=== PATIENT | male | born 2000 | race Caucasian/White ===

== ENCOUNTER 2020-08-26 13:40 | Outpatient (REF) | payer MEDICAID, SELFPAY | END 2020-08-26 13:41 | disposition home or self-care (01) | LOC: HO.LAB 13:40 | PROVIDERS: Visit Provider Internal Medicine | DX: Z20.828 Contact with and (suspected) exposure to other viral communicable diseases (principal) | CPT/HCPCS: 87635 ==

== ENCOUNTER 2020-09-02 14:14 | Emergency (ER) | payer MEDICAID, SELFPAY ==
--- NOTE | 2020-09-02 | XR_ITS ---
EXAMINATION: XR CHEST CLINICAL INFORMATION: Cough with pain COMPARISON: None TECHNIQUE: Frontal view of the chest was obtained. FINDINGS: The lungs are well expanded. There is no focal consolidation, edema, or effusion. No pneumothorax. The cardiomediastinal silhouette is within normal limits. No acute osseous abnormality. IMPRESSION: Clear lungs.
[2020-09-02 16:16] VITALS: BP 122/75; PULSE 78; RESP 16; TEMP 37.1; O2SAT 98; BMI 27.3
--- NOTE | 2020-09-02 16:40 | ED_ITS ---
HPI - URI/Sore Throat General Chief Complaint: Upper Respiratory Symptoms <CHAD Cooper Last Filed: 09/02/20 16:54> Stated Complaint: chest congestion <CHAD Cooper Last Filed: 09/02/20 16:54> Time Seen by Provider: 09/02/20 16:40 <CHAD Cooper Last Filed: 09/02/20 16:54> Source: patient <CHAD Cooper Last Filed: 09/02/20 16:54> Mode of arrival: ambulatory <CHAD Cooper Last Filed: 09/02/20 16:54> Limitations: no limitations <CHAD Cooper Last Filed: 09/02/20 16:54> History of Present Illness HPI Narrative: 20-year-old male presenting to the ED with complaints of a dry cough for the past 5 days. Denies any other symptoms related to this. Reports that he was seen here approximately 5 days ago for an outpatient COVID swab was negative although did not have symptoms at this time. Reports that 1 of his coworkers tested positive for COVID. Denies any fevers, nausea / vomiting, headaches, dizziness, chest pain or shortness of breath, abdominal pain or any other symptoms complaints or concerns at this time. Denies recent travel. <CHAD Cooper Last Filed: 09/02/20 16:54> Related Data Home Medications: Previous Rx's Medication Instructions Recorded acetaminophen [Tylenol] 650 mg PO Q6H PRN #14 tab NS 09/02/20 albuterol sulfate 2 puff INHALATION Q6H PRN #6.7 g NS 09/02/20 azithromycin [Zithromax] See Rx Instructions PO .COMPLEX #6 09/02/20 tab <CHAD Cooper Last Filed: 09/02/20 16:54> Allergies/Adverse Reactions: Allergies Allergy/AdvReac Type Severity Reaction Status Date / Time No Known Allergies Allergy Verified 09/02/20 16:21 <CHAD Cooper Last Filed: 09/02/20 16:54> Review of Systems Review of Systems: Yes all other systems are reviewed and are negative <CHAD Cooper Last Filed: 09/02/20 16:54> PMFSH Past Medical History Attestation statement: The following information was validated with the patient. <CHAD Cooper - Last Filed: 09/02/20 16:54> Medical History: Medical History No known health problems <CHAD Cooper - Last Filed: 09/02/20 16:54> Social History Social History: Social History Alcohol intake: never Smoked in Last 30 Days: No Use of substances other than those prescribed or required for medical reasons: No Advance Directives: No Advance Directives Information Provided: No <CHAD Cooper - Last Filed: 09/02/20 16:54> Physical Exam Vital Signs: Vital Signs: Vital Signs Temp Pulse Resp BP Pulse Ox 09/02/20 16:16 98.7 F 78 16 122/75 98 Body Mass Index 27.3 <CHAD Cooper - Last Filed: 09/02/20 16:54> Vital Signs: Vital Signs Temp Pulse Resp BP Pulse Ox 09/02/20 16:16 98.7 F 78 16 122/75 98 Body Mass Index 27.3 <Luis Pepe MD - Last Filed: 09/06/20 15:12> Const: General: cooperative, healthy appearing, comfortable, no acute distress, well developed, alert, awake and Physically active <CHAD Cooper - Last Filed: 09/02/20 16:54> Nutritional Appearance: average body habitus and well nourished <CHAD Cooper - Last Filed: 09/02/20 16:54> Orientation/consciousness: patient oriented x3 <CHAD Cooper - Last Filed: 09/02/20 16:54> Limitations: no limitations <CHAD Cooper - Last Filed: 09/02/20 16:54> HENMT: Head: Yes normal to inspection, Yes No palpable skull fracture present, Yes normocephalic and Yes atraumatic <CHAD Cooper - Last Filed: 09/02/20 16:54> Ears: hearing grossly normal bilaterally <CHAD Cooper - Last Filed: 09/02/20 16:54> General nose exam: Normal external nose present <CHAD Cooper Last Filed: 09/02/20 16:54> Face and sinus: Yes normal facial exam <CHAD Cooper Last Filed: 09/02/20 16:54> Mouth: moist mucous membranes <Paula Maria [facility] Last Filed: 09/02/20 16:54> Eyes: General: appearance normal, both eyes and all related structures <CHAD Cooper Last Filed: 09/02/20 16:54> Visual Becerra: normal visual becerra by confrontation <Paula Maria [facility] Last Filed: 09/02/20 16:54> Alignment and Position: alignment normal <CHAD Cooper Last Filed: 09/02/20 16:54> Periorbital: periorbital findings normal <CHAD Cooper Last Filed: 09/02/20 16:54> Eyelids: Yes eyelids normal <CHAD Cooper Last Filed: 09/02/20 16:54> Conjunctivae: conjunctivae normal <CHAD Cooper Last Filed: 09/02/20 16:54> Sclerae: sclerae normal <Paula Maria [facility] Last Filed: 09/02/20 16:54> Pupils: Equal, round and reactive pupils present <CHAD Cooper Last Filed: 09/02/20 16:54> EOM: EOMs intact bilaterally <CHAD Cooper Last Filed: 09/02/20 16:54> Neck: Neck: Yes normal visual inspection, Yes full ROM, Yes no lymphadenopathy, Yes no meningeal signs, Yes trachea midline and Yes supple <Paula Maria [place] - Last Filed: 09/02/20 16:54> Chest: Chest palpation & inspection: normal inspection of the chest <CHAD Cooper Last Filed: 09/02/20 16:54> Resp: Effort & Inspection: normal respiratory effort and able to speak in complete sentences <CHAD Cooper Last Filed: 09/02/20 16:54> Auscultation: clear to auscultation bilaterally, no crackles, no rales, no rhonchi and no wheezes <CHAD Cooper - Last Filed: 09/02/20 16:54> Cardio: Rate: regular rate <Paula Maria [facility] Last Filed: 09/02/20 16:54> Rhythm: regular rhythm <Paula Maria [facility] Last Filed: 09/02/20 16:54> Heart sounds: S1 normal heart sound present and S2 normal heart sound present <Paula Maria [facility] Last Filed: 09/02/20 16:54> Peripheral pulses: Peripheral pulses 2+ throughout <Paula Maria [facility] Last Filed: 09/02/20 16:54> GI: Inspection: Yes normal to inspection <Paula Maria [facility] Last Filed: 09/02/20 16:54> Palpation (GI): Soft to palpation, nontender and No hepatosplenomegaly present <Paula Maria [facility] Last Filed: 09/02/20 16:54> Percussion: Yes normal to percussion <Paula Maria [facility] Last Filed: 09/02/20 16:54> Auscultation: normal bowel sounds <Paula Maria [facility] Last Filed: 09/02/20 16:54> : General: Yes no CVA tenderness <Paula Maria [facility] Last Filed: 09/02/20 16:54> Back/Spine/Pelvis: Back: no CVA tenderness <Paula Maria [facility] Last Filed: 09/02/20 16:54> Cervical Spine: normal cervical lordosis and cervical ROM normal <Paula Maria [facility] Last Filed: 09/02/20 16:54> Thoracic/Lumbar Spine: thoracic and lumbar spine normal to inspection and thoraco-lumbar ROM normal <Paula Maria [facility] Last Filed: 09/02/20 16:54> Skin: General skin exam: no rashes or lesions noted, elasticity normal and turgor normal <Paula Maria [facility] Last Filed: 09/02/20 16:54> Trauma: no lacerations or abrasions <Paula Maria [facility] Last Filed: 09/02/20 16:54> Wounds: no wounds <Paula Maria [facility] Last Filed: 09/02/20 16:54> Hair: normal <Paula Maria PA - Last Filed: 09/02/20 16:54> Nails: normal <Paula Maria [place] - Last Filed: 09/02/20 16:54> Neuro: General: patient oriented x3 and no meningeal signs <Paula Maria OR - Last Filed: 09/02/20 16:54> Cranial nerves: Yes CN's II-XII intact bilaterally and Yes Equal, round and reactive pupils present <Paula Maria OR - Last Filed: 09/02/20 16:54> Cognition (Neuro): normal cognition <Paula Maria OR - Last Filed: 09/02/20 16:54> Gait exam (Neuro): Normal gait present <Paula Maria OR - Last Filed: 09/02/20 16:54> Motor exam (neuro): 5/5 motor strength present throughout <Paula Maria OR - Last Filed: 09/02/20 16:54> Extrem: General: Yes normal to inspection, Yes full ROM, Yes capillary refill normal, Yes no clubbing, cyanosis or edema, No no pedal edema, No no calf tenderness, Yes normal gait and No edema <Paula Maria OR - Last Filed: 09/02/20 16:54> Right upper extremity: normal to inspection, full ROM and normal capillary refill; no edema <Paula Maria OR - Last Filed: 09/02/20 16:54> Left upper extremity: normal to inspection, full ROM and normal capillary refill; no edema <Paula Maria OR - Last Filed: 09/02/20 16:54> Right lower extremity: normal to inspection, full ROM and normal capillary refill; no edema <Paula Maria OR - Last Filed: 09/02/20 16:54> Left lower extremity: normal to inspection, full ROM and normal capillary refill; no edema <Paula Maria OR - Last Filed: 09/02/20 16:54> Psych: Appearance: grossly normal and well kempt <Paula Maria OR - Last Filed: 09/02/20 16:54> Mental Status: mental status grossly normal <CHAD Cooper - Last Filed: 09/02/20 16:54> Speech and movement: Normal speech and movement present and Clear speech present <CHAD Cooper - Last Filed: 09/02/20 16:54> Affect: normal affect <CHAD Cooper - Last Filed: 09/02/20 16:54> Attitude: cooperative <CHAD Cooper - Last Filed: 09/02/20 16:54> Thought process: Normal thought process present <CHAD Cooper - Last Filed: 09/02/20 16:54> Thought content: Normal thought content present <CHAD Cooper - Last Filed: 09/02/20 16:54> Insight: Good insight present (Psych) <CHAD Cooper - Last Filed: 08/18 05/07 16:54> Judgement: Good judgement present (Psych) <CHAD Cooper - Last Filed: 09/02/20 16:54> Course Course Course Narrative: I have reviewed the chart <Luis Pepe MD - Last Filed: 09/06/20 15:12> MDM - URI/Sore Throat Lab Data Labs: Lab Results 09/02/20 Range/Units 17:17 COVID-19 PCR DETECTED A (NOT DETECTED) <CHAD Cooper - Last Filed: 09/02/20 16:54> Lab Results 09/02/20 Range/Units 17:17 COVID-19 PCR DETECTED A (NOT DETECTED) <Luis Pepe MD - Last Filed: 09/06/20 15:12> Discharge Plan Discharge Clinical Impression: Upper respiratory infection <CHAD Cooper - Last Filed: 09/02/20 16:54> Patient Disposition: Home, Self-Care <CHAD Cooper - Last Filed: 09/02/20 16:54> Instructions: Upper Respiratory Infection (ED) <CHAD Cooper - Last Filed: 09/02/20 16:54> Additional Instructions: Based on your symptoms and history we have sent a COVID-19. Although your RESULT IS PENDING at this time. RESULTS should return within 72 hours. At this time you will be contacted with either NEGATIVE OR POSITIVE results. -Please wait until we contact you for your results. At this time you will be okay for discharge. Please plan for self quarantine for up to 14 days. Do not expose yourself to others. You may not go to work. If testing does come back negative you may return to activities as long as you are no longer having any symptoms for at least 3 days. Please continue to follow cold instructions and wash your hands frequently. You may take Tylenol as directed on the bottle for pain or fever. Patient seen in the emergency department on 09/02/2020 and should be excused from work until negative test results AND until 72 hours without any symptoms AND at least 10 days have passed since symptoms first appeared or since last exposure to COVID-19 positive patient CDC Guidelines for home isolation: - Stay away from others - WEAR A MASK if you are sick AND STAY HOME - Cover your mouth and nose with a tissue when you cough or sneeze. Dispose of tissues in a lined trash can and wash your hands immediately with soap and water for at least 20 seconds. If soap and water are not available, clean hands with alcohol-based hand acid correction hand that contains at least 60% alcohol. - Clean your hands often with soap and water for at least 20 seconds - Avoid touching your eyes, nose and mouth with unwashed hands - Do not share dishes, drinking glasses, cups, eating utensils, towels, or bedding with other people in your home. After using these items, wash them thoroughly with soap and water or put in the parking cashier. - Clean high-touch surfaces in your isolation area ( sick room and bathroom) every day; let a caregiver clean and disinfect high-touch surfaces in other areas of the home. Clean the area or item with soap and water or another detergent if it is dirty. Then, use a household disinfectant. - Limit contact with pets and animals: If you must care for a pet, wash your hands before and after interacting with them). <CHAD Cooper - Last Filed: 09/02/20 16:54> Prescriptions: New azithromycin [Zithromax] 250 mg tablet See Rx Instructions PO .COMPLEX Qty: 6 RF: 0 acetaminophen [Tylenol] 325 mg tablet 650 mg PO Q6H PRN (Reason: pain) Qty: 14 RF: 0 albuterol sulfate 90 mcg/actuation HFA aerosol inhaler 2 puff inhalation Q6H PRN (Reason: shortness of breath or wheezing) Qty: 6.7 RF: 0 <CHAD Cooper - Last Filed: 09/02/20 16:54> Stand Alone Forms: Work/School Release <CHAD Cooper - Last Filed: 09/02/20 16:54> Interventions: ED Discharge Assessment Last Done: 09/02/20 17:55 <CHAD Cooper - Last Filed: 09/02/20 16:54> Discharge Date/Time: 09/02/20 17:00 <CHAD Cooper - Last Filed: 09/02/20 16:54> Print Language: Kenyan <CHAD Cooper - Last Filed: 09/02/20 16:54>
== END 2020-09-02 17:00 | disposition home or self-care (01) ==
PROVIDERS: Physician Assistant Medical; Emergency Provider Emergency Medicine
DX: J06.9 Acute upper respiratory infection, unspecified (principal); Z20.828 Contact with and (suspected) exposure to other viral communicable diseases; Z79.899 Other long term (current) drug therapy
CPT/HCPCS: 71045; 87635; 99283; 99284

== ENCOUNTER 2021-01-26 12:41 | Emergency (ER) | payer MEDICAID, SELFPAY ==
--- NOTE | ~2021-01-26 | CT_ITS ---
EXAMINATION: CT ABDOMEN AND PELVIS WITHOUT CONTRAST CLINICAL INFORMATION: abd pain s/p appy. . COMPARISON: No pertinent prior studies are available for comparison. TECHNIQUE: Multidetector volumetric imaging was performed from the superior aspect of the liver through the pubic symphysis without contrast per renal stone protocol. Sagittal and coronal reformatted images were obtained on the technologist workstation. This CT examination was performed using dose optimization techniques as appropriate, variously including the following: *Automated exposure control *Adjustment of mA and/or kV according to patient size (this includes techniques or standardized protocols for targeted exams where dose is matched to indication/reason for exam; i.e. extremities or head) *Use of iterative reconstruction technique DLP: 525 mGy-cm. FINDINGS: LUNG BASES: The visualized lung bases are unremarkable. LIVER, GALLBLADDER, BILIARY TREE: The non-contrast liver is normal in size, shape, and attenuation. No focal hepatic lesion or biliary ductal dilatation is present. The gallbladder is unremarkable with no evidence of radiopaque gallstones, gallbladder wall thickening, or obvious pericholecystic inflammatory changes. PANCREAS: Unremarkable. SPLEEN: Unremarkable. ADRENAL GLANDS: Unremarkable. KIDNEYS AND URETERS: The kidneys are normal in size, shape, and attenuation. Tiny nonobstructing punctate calculi seen bilaterally. No hydronephrosis, hydroureter, or obstructing calculi seen. No perinephric stranding. BLADDER: Unremarkable. GASTROINTESTINAL TRACT: The small and large bowel are unremarkable. The appendix is likely surgically absent. No focal inflammatory changes in the right lower quadrant. ABDOMINAL WALL: No significant hernia is appreciated. LYMPHOVASCULAR STRUCTURES: No lymphadenopathy. The aorta is unremarkable.. PELVIC VISCERA: Unremarkable. OSSEUS STRUCTURES: Unremarkable. CT/CT abdomen pelvis wo con IMPRESSION: No acute intra-abdominal process..
[2021-01-26 13:05] VITALS: BP 126/77; PULSE 82; RESP 16; TEMP 36.8; O2SAT 97; BMI 27.3
[2021-01-26 13:22] LABS: MANUAL DIFF FLAG NO
[2021-01-26 13:25] LABS: Basophils Percent Auto 0.6 % (0-2); Eosinophils Percent Auto 0.8 % (0-4); Hematocrit 45.4 % (42-52); Hemoglobin 15.3 g/dl (14.0-18.0); Imm Gran Abs Auto 0.01 X10*3/uL (0.00-0.03); Imm Gran Pct Auto 0.2 % (0.0-0.4); Lymphocytes Absolute Auto 1.7 X10*3/uL (1.2-4.9); Lymphocytes Percent Auto 32.3 % (20-40); Mean Corpuscular HGB Conc 33.7 g/dl (31.0-36.0); Mean Corpuscular Hemoglobin 28.2 pg (27.0-33.0); Mean Corpuscular Volume 83.8 fL (80-98); Mean Platelet Volume 9.5 fL (9.4-12.4); Monocytes Absolute Auto 0.7 X10*3/uL (0.1-1.2); Monocytes Percent Auto 12.7 % (2-11); Neutrophils Absolute Auto 2.8 X10*3/uL (2.0-8.3); Neutrophils Percent Auto 53.4 % (45-73); Platelet Count 255 X10*3/uL (160-400); Red Blood Count 5.42 X10*6/uL (4.60-5.80); Red Cell Distribution Width 12.8 % (11.0-16.0); White Blood Count 5.3 X10*3/uL (4.8-10.8)
[2021-01-26 13:37] LABS: Glucose Urine UA NEG (NEG); Leukocyte Esterase Urine NEG (NEG); Nitrite Urine NEG (NEG); Specific Gravity - Urine 1.025 (1.005-1.025); Urine Blood NEG (NEG); Urine Ketones NEG (NEG); Urine Protein NEG (NEG-TRACE)
[2021-01-26 13:43] LABS: Appearance Urine CLEAR; Color Urine YELLOW
[2021-01-26 13:48] LABS: Anion Gap 12 (12-20); Blood Urea Nitrogen 15 mg/dL (9-16); Calcium 9.6 mg/dL (8.4-10.2); Carbon Dioxide 29 mmol/L (22-29); Chloride 106 mmol/L (96-108); Estimated Glomerular Filt Rate > 60; Glucose Random 85 mg/dL (60-115); Sodium 143 mmol/L (135-145)
--- NOTE | 2021-01-26 18:53 | ED.ABDPAIN ---
HPI - Abdominal Pain General Chief Complaint: Abdominal Pain Stated Complaint: ABD PAIN Time Seen by Provider: 01/26/21 18:33 Source: patient Mode of arrival: ambulatory Limitations: no limitations History of Present Illness HPI narrative: 20-year-old male came in with diffuse abdominal pain, pain started 1 day ago, pain described as constant dull aching pain, more in the right lower quadrant area (patient status post appendectomy), but also patient feels pain diffusely in the abdomen, decreased p.o. intake, nausea and low-grade fever but no vomiting, no diarrhea. Nothing makes the pain better, nothing make it worse. Related Data Previous Rx's Medication Instructions Recorded acetaminophen [Tylenol] 650 mg PO Q6H PRN #14 tab NS 09/02/20 albuterol sulfate 2 puff INHALATION Q6H PRN #6.7 g NS 09/02/20 azithromycin [Zithromax] See Rx Instructions PO .COMPLEX #6 09/02/20 tab Allergies Allergy/AdvReac Type Severity Reaction Status Date / Time No Known Allergies Allergy Verified 09/02/20 16:21 Review of Systems Review of Systems All other systems are reviewed and are negative Constitutional: Reports as per HPI and Reports no additional constitutional complaints Eyes: Reports as per HPI and Reports no additional eye complaints Reports system reviewed and no additional complaints, except as documented Cardiovascular: Reports as per HPI and Reports no additional cardiovascular complaints Respiratory: Reports as per HPI and Reports no additional respiratory complaints Gastrointestinal: Reports as per HPI and Reports no additional gastrointestinal complaints Genitourinary: Reports no additional female genitourinary complaints Musculoskeletal: Reports no additional musculoskeletal complaints Skin/Breast: Reports system reviewed and no additional complaints, except as docu Psychiatric: Reports no additional psychiatric complaints Endocrine: Reports no additional endocrine complaints Hematologic/Lymphatic: Reports no additional hematologic/lymphatic complaints Allergic/Immunologic: Reports no additional allergic/immunologic complaints Reports system reviewed and no additional complaints, except as documented and Reports Abnormal speech present Physical Exam Vital Signs: Vital Signs: Last Vital Signs Temp 98.9 F 01/26/21 18:55 Pulse 95 01/26/21 18:55 Resp 16 01/26/21 18:55 BP 131/66 01/26/21 18:55 Pulse Ox 98 01/26/21 18:55 Body Mass Index 27.3 Vital signs have been reviewed as appeared to be correct. Blood pressure normal. Heart rate normal. Respiration rate normal. Temperature normal. Oxygen saturation normal. Appearance: Alert. Oriented X3. No acute distress. Head: Normal external exam. Normocephalic. Atraumatic. No Geiger signs noted. No raccoon eyes noted Eyes: PERRLA. EOMI. Conjunctiva and sclera normal. Eyelids normal. ENT: TM's Normal. Pharynx normal. Uvula midline. Moist mucous membranes. No trismus noted. No drooling noted. No muffled voice noted. Neck: Normal inspection. Neck supple. FROM. No adenopathy. Thyroid Normal. No meningeal signs. No neck mass noted. CVS: Normal heart rate and rhythm. Heart sound normal. No murmurs noted. Pulses normal throughout. Respiratory: No respiratory distress. Painless inspiration. Breath sounds normal. No wheezes/rales/rhonchi noted. Chest nontender. No accessory muscle usage noted or decreased air movement noted. Abdomen: Soft, mild diffuse tenderness, no guarding, no rebound tenderness.. Bowel sounds normal in all 4 quadrants. No distention noted. No organomegaly noted. No visible injury noted. Back: No CVA tenderness. Full range of motion noted. Skin: Skin warm and dry. Normal skin color. Normal skin turgor. No rashes/lesions/lacerations noted. Extremities: No lower extremity edema. Extremities exhibit normal range of motion. Extremities nontender. Neuro: Oriented X 3. No motor deficit. No sensory deficit. Reflexes normal. Course Course Course Narrative: Acute on chronic abdominal pain, status post appendectomy, unremarkable labs, CT abdomen pelvis no acute intra-abdominal pathology. Will discharge to follow-up with PCP. Chronic back pain patient work with heavy boxes, patient was instructed to take few days off from work and try to rest his back using NSAIDs and heating pad. MDM - Abdominal Pain Lab Data Attestation: I reviewed the patient's lab results. Result diagrams: 01/26/21 13:14 01/26/21 13:14 Labs: Lab Results 01/26/21 01/26/21 01/26/21 Range/Units 13:14 13:14 13:14 WBC 5.3 (4.8-10.8) X10*3/uL RBC 5.42 (4.60-5.80) X10*6/uL Hgb 15.3 (14.0-18.0) g/dl Hct 45.4 (42-52) % MCV 83.8 (80-98) fL MCH 28.2 (27.0-33.0) pg MCHC 33.7 (31.0-36.0) g/dl RDW 12.8 (11.0-16.0) % Plt Count 255 (160-400) X10*3/uL MPV 9.5 (9.4-12.4) fL Immature Gran % (Auto) 0.2 (0.0-0.4) % Neut % (Auto) 53.4 (45-73) % Lymph % (Auto) 32.3 (20-40) % [place] % (Auto) 12.7 H (2-11) % Eos % (Auto) 0.8 (0-4) % Baso % (Auto) 0.6 (0-2) % Lymph # (Auto) 1.7 (1.2-4.9) X10*3/uL [place] # (Auto) 0.7 (0.1-1.2) X10*3/uL Eos # (Auto) 0.0 (0.0-0.4) X10*3/uL Baso # (Auto) 0.0 (0.0-0.2) X10*3/uL Abs Immat Gran (auto) 0.01 (0.00-0.03) X10*3/uL Absolute Neuts (auto) 2.8 (2.0-8.3) X10*3/uL Absolute Nucleated RBC 0.000 (0.0-0.012) X10*3/uL Nucleated RBC % (auto) 0.0 (0.0-0.2) /100WBC Sodium 143 (135-145) mmol/L Potassium 4.0 (3.3-5.1) mmol/L Chloride 106 (96-108) mmol/L Carbon Dioxide 29 (22-29) mmol/L Anion Gap 12 (12-20) BUN 15 (9-16) mg/dL Creatinine 0.89 (0.5-1.4) mg/dL Estim Creat Clear Calc 127.0 Estimated GFR > 60 Random Glucose 85 (60-115) mg/dL Calcium 9.6 (8.4-10.2) mg/dL Total Bilirubin 0.7 (0.0-1.0) mg/dL Direct Bilirubin 0.3 (0.0-0.5) mg/dL AST 17 (5-37) U/L ALT 14 (0-40) U/L Alkaline Phosphatase 58 (39-117) U/L Total Protein 7.7 (6.5-8.0) g/dL Albumin 4.8 (3.5-5.0) g/dL Lipase 18 (8-78) U/L Urine Color YELLOW Urine Appearance CLEAR Urine pH 6.0 (5.0-8.0) Ur Specific [place] 1.025 (1.005-1.025) Urine Protein NEG (NEG-TRACE) MG/DL Urine Glucose (UA) NEG (NEG) MG/DL Urine Ketones NEG (NEG) MG/DL Urine Blood NEG (NEG) Urine Nitrite NEG (NEG) Ur Leukocyte Esterase NEG (NEG) Imaging Data CT scan - abdomen: Radiologist's impression: No acute intra-abdominal process. Discharge Plan Discharge Clinical Impression: Chronic back pain, Abdominal pain Patient Disposition: Home, Self-Care Instructions: Back Pain (ED) Prescriptions: No Action azithromycin [Zithromax] 250 mg tablet See Rx Instructions PO .COMPLEX Qty: 6 RF: 0 acetaminophen [Tylenol] 325 mg tablet 650 mg PO Q6H PRN (Reason: pain) Qty: 14 RF: 0 albuterol sulfate 90 mcg/actuation HFA aerosol inhaler 2 puff inhalation Q6H PRN (Reason: shortness of breath or wheezing) Qty: 6.7 RF: 0 Referrals: [facility] [Primary Care Provider] - 2 days Stand Alone Forms: Work/School Release [facility] Past Medical History Medical History No known health problems Surgical History History of appendectomy Social History Social History Alcohol intake: never Advance Directives: No Advance Directives Information Provided: No
[2021-01-26 18:55] VITALS: BP 131/66; PULSE 95; RESP 16; TEMP 37.2; O2SAT 98
[2021-01-26 19:11] LABS: Alanine Aminotransferase 14 U/L (0-40); Albumin Level 4.8 g/dL (3.5-5.0); Alkaline Phosphatase 58 U/L (39-117); Aspartate Amino Transferase 17 U/L (5-37); Bilirubin Direct 0.3 mg/dL (0.0-0.5); Bilirubin Total 0.7 mg/dL (0.0-1.0); Lipase 18 U/L (8-78); Total Protein 7.7 g/dL (6.5-8.0)
[2021-01-26 20:00] VITALS: BP 125/70; PULSE 88; RESP 16; TEMP 36.9; O2SAT 98
== END 2021-01-26 20:39 | disposition home or self-care (01) ==
PROVIDERS: Emergency Provider Emergency Medicine
DX: R10.31 Right lower quadrant pain (principal); G89.29 Other chronic pain; M54.9 Dorsalgia, unspecified
CPT/HCPCS: 36415; 74176; 80048; 80076; 81003; 83690; 85025; 99284

== ENCOUNTER 2021-06-05 11:53 | Outpatient (REF) | payer MEDICAID, SELFPAY | END 2021-06-05 11:54 | disposition home or self-care (01) | LOC: HO.LAB 11:53 | PROVIDERS: Visit Provider Internal Medicine | DX: Z20.822 Contact with and (suspected) exposure to COVID-19 (principal) | CPT/HCPCS: C9803; U0003; U0005 ==

== ENCOUNTER 2022-03-22 11:02 | Emergency (ER) | payer MEDICAID, SELFPAY ==
[2022-03-22 11:13] VITALS: BP 122/75; PULSE 93; RESP 18; TEMP 36.9; O2SAT 97; BMI 25.8
--- NOTE | 2022-03-22 11:44 | PC.NURSE ---
Pt presents to ED, alert, oriented C/C upper respiratory symptoms. States he developed a cough last week that has left him with through pain, pt denies measured fevers, chills, nausea, vomiting, diarrhea. obtained swabs for flu, strep, and covid. Pt resting comfortably, no acute distress
[2022-03-22 11:56] LABS: Strep A Nucleic Acid Negative (Negative)
[2022-03-22 12:06] LABS: COVID-19 Test Negative (Negative); IDNOW Serial# 16C4AD1C; Influenza A Negative (Negative); Influenza B2 Negative (Negative)
--- NOTE | 2022-03-22 12:57 | ED_ITS ---
HPI - URI/Sore Throat General Chief Complaint: Upper Respiratory Symptoms Stated Complaint: cough sore throat Time Seen by Provider: 03/22/22 11:24 Source: patient Mode of arrival: ambulatory Limitations: no limitations History of Present Illness HPI Narrative: 21-year-old male presents with 1 week of upper respiratory symptoms. States that he has had a runny nose and cough for a week, had a fever 1 day at the o nset of symptoms, fever has resolved. Patient has had body aches. Three days ago he started with a sore throat. Some pain with swallowing, but is able to eat and drink. Not vaccinated for COVID. Patient works as [employer], and today was sent here for evaluation due to his cough. Related Data Previous Rx's Medication Instructions Recorded Tylenol 325 mg tablet 650 mg PO Q6H PRN #14 tab NS 09/02/20 (acetaminophen) albuterol sulfate 90 mcg/actuation 2 puff INHALATION Q6H PRN #6.7 g NS 09/02/20 aerosol inhaler azithromycin 250 mg tablet See Rx Instructions PO .COMPLEX #6 09/02/20 (Zithromax) tab albuterol sulfate 90 mcg/actuation 2 puff INHALATION Q4-6H PRN #8.5 g 03/22/22 aerosol inhaler benzonatate 200 mg capsule 200 mg PO TID 5 Days #15 cap 03/22/22 codeine 10 mg-guaifenesin 100 mg/5 10 ml PO Q4-6H PRN #120 ml 03/22/22 mL oral liquid Allergies Allergy/AdvReac Type Severity Reaction Status Date / Time No Known Allergies Allergy Verified 09/02/20 16:21 Review of Systems Constitutional: Constitutional: Reports body ache(s), Denies chills, Denies fatigue, Reports fever(s) (Once, 1 week ago), Denies headache(s), Denies malaise and Denies weakness Eyes: Eyes: Denies diplopia ENT: Denies vertigo, Denies dizziness, Denies otalgia, Denies headache(s), Denies mouth pain, Reports nasal congestion, Reports post nasal drip, Denies sinus pain, Denies sinus pressure, Reports sore throat and Denies throat swelling Cardiovascular: Cardiovascular: Denies chest pain, Denies syncope, Denies leg edema, Denies lightheadedness, Denies Loss of Consciousness, Denies palpitations and Denies dyspnea Respiratory: Respiratory: Denies chest congestion, Reports cough, Denies pain on inspiration, Denies pain with cough and Denies dyspnea Gastrointestinal: Gastrointestinal: Denies abdominal pain, Denies hematochezia, Denies constipation, Denies diarrhea, Denies nausea and Denies vomiting Musculoskeletal: Musculoskeletal: Reports no additional musculoskeletal complaints Neurologic: Denies confusion, Denies vertigo, Denies dizziness, Denies syncope, Denies headache(s) and Denies weakness Psychiatric: Psychiatric: Denies anxiety, Denies confusion and Denies depression Endocrine: Endocrine: Denies fatigue and Denies palpitations Allergic/Immunologic: Allergic/Immunologic: Denies throat swelling PMFSH Past Medical History Medical History No known health problems Surgical History History of appendectomy Social History Social History Alcohol intake: never Advance Directives: No Advance Directives Information Provided: No Physical Exam Vital Signs: Vital Signs: Last Vital Signs Temp 98.5 F 03/22/22 11:13 Pulse 93 03/22/22 11:13 Resp 18 03/22/22 11:13 BP 122/75 03/22/22 11:13 Pulse Ox 97 03/22/22 11:13 BMI result Body Mass Index 25.8 Const: General: no acute distress, well developed, alert and awake; No confusion Nutritional Appearance: well nourished Orientation/consciousness: patient oriented x3 and No confusion Limitations: no limitations HEENT: Head: Yes normal to inspection, Yes normocephalic and Yes atraumatic Ears: hearing grossly normal bilaterally, external ears normal, TM's normal bilaterally and EAC's normal General nose exam: Normal external nose present Face and sinus: Yes normal facial exam and Yes sinuses nontender Mouth: Normal oral and palatal mucosa present Throat: Yes posterior oropharynx normal, Yes posterior oropharynx abnormal (mild posterior erythema) and Yes postnasal drainage Eyes: Conjunctivae: conjunctivae normal Pupils: Equal, round and reactive pupils present EOM: EOMs intact bilaterally Neck: Neck: Yes full ROM, Yes no lymphadenopathy and Yes supple Resp: Effort & Inspection: normal respiratory effort and able to speak in complete sentences Auscultation: clear to auscultation bilaterally, no crackles, no rales, no rhonchi and no wheezes Cardio: Rate: regular rate Rhythm: regular rhythm Heart sounds: S1 normal heart sound present and S2 normal heart sound present GI: Inspection: Yes normal to inspection Palpation (GI): Soft to palpation, nontender, no guarding and not rigid Percussion: Yes normal to percussion Auscultation: normal bowel sounds Skin: General skin exam: no rashes or lesions noted Neuro: General: patient oriented x3 and No confusion Cranial nerves: Yes Equal, round and reactive pupils present Extrem: General: Yes normal to inspection and Yes full ROM Psych: Appearance: grossly normal Affect: normal affect Attitude: cooperative Thought process: Normal thought process present Course Course Course Narrative: 21-year-old male presents for 1 week of upper respiratory symptoms including cough dry cough, 1 day of fever, body aches, runny nose, sore throat. On exam, patient has stable vitals, he is afebrile, lungs clear to auscultation bilaterally, no wheezing, oropharynx mildly erythematous with postnasal drip. Patient is COVID, strep, flu negative. Will treat with albuterol inhaler to help dry cough, Tessalon Perles, Mucinex with codeine. Gave return precautions of chest pain, shortness of breath, worsening symptoms, return to emergency room. Patient verbalized agreement understanding of plan, all patient's questions were answered. MDM - URI/Sore Throat Lab Data Labs: Lab Results 03/22/22 03/22/22 03/22/22 Range/Units 11:32 11:32 11:32 COVID-19 ([facility]) Negative (Negative) COVID-19 Clin Com See Note Influenza Type A ([facility]) Negative (Negative) Influenza Type B ([facility]) Negative (Negative) Influenza A & B Note See Note S. pyogenes GrpA [facility] Negative (Negative) Discharge Plan Discharge Clinical Impression: Upper respiratory infection Patient Disposition: Home, Self-Care Instructions: Viral Syndrome (ED) Additional Instructions: Please rest, take Tylenol, drink plenty of fluids. Your COVID, flu, and strep test were all negative today. Please use your albuterol inhaler, 2 puffs every 4 hours. Please take the cough syrup before bed for sleep. Please take the benzonatate cough pills as pre scribed. If you have chest pain, shortness of breath, or worsening symptoms, please return to emergency room Prescriptions: New albuterol sulfate 90 mcg/actuation HFA aerosol inhaler 2 puff inhalation Q4-6H PRN (Reason: shortness of breath or wheezing) Qty: 8.5 0RF codeine-guaifenesin 10-100 mg/5 mL liquid 10 ml PO Q4-6H PRN (Reason: cough) Qty: 120 0RF benzonatate 200 mg capsule 200 mg PO TID 5 Days Qty: 15 0RF No Action azithromycin [Zithromax] 250 mg tablet See Rx Instructions PO .COMPLEX Qty: 6 0RF Rx Instructions: take 500 mg today (day 1), then 250 mg for 4 days (days 2-5) acetaminophen [Tylenol] 325 mg tablet 650 mg PO Q6H PRN (Reason: pain) Qty: 14 0RF albuterol sulfate 90 mcg/actuation HFA aerosol inhaler 2 puff inhalation Q6H PRN (Reason: shortness of breath or wheezing) Qty: 6.7 0RF Stand Alone Forms: Work/School Release Interventions: ED Discharge Assessment Last Done: 03/22/22 12:48 Discharge Date/Time: 03/22/22 12:50
== END 2022-03-22 12:50 | disposition home or self-care (01) ==
PROVIDERS: Physician Assistant; Emergency Provider Emergency Medicine
DX: J06.9 Acute upper respiratory infection, unspecified (principal); R05.9 Cough, unspecified; M79.10 Myalgia, unspecified site; Z20.822 Contact with and (suspected) exposure to COVID-19; Z79.899 Other long term (current) drug therapy
CPT/HCPCS: 87502; 87635; 87651; 99283

== ENCOUNTER 2022-12-11 01:05 | Emergency (ER) | payer MEDICAID, SELFPAY ==
[2022-12-11 01:10] VITALS: BP 121/98; BP 140/80; PULSE 96; RESP 16; TEMP 36.6; O2SAT 99; BMI 25.8
[2022-12-11 01:15] VITALS: BP 121/98; PULSE 96; RESP 16; TEMP 36.6; O2SAT 98
--- NOTE | 2022-12-11 01:19 | ED_ITS ---
HPI - Nausea/Vomiting/Diarrhea General Chief complaint: Nausea/Vomiting/Diarrhea Stated complaint: food poisoning Time Seen by Provider: 12/11/22 01:19 Source: patient Mode of arrival: ambulatory Limitations: no limitations History of Present Illness HPI Narrative: Patient had burger at [facility] at noon time yesterday since 14:00 been vomiting more than 10-15 times no significant abdominal pain no diarrhea no fever or chills no lower abdominal pain Related Data Previous Rx's Medication Instructions Recorded Tylenol 325 mg tablet 650 mg PO Q6H PRN pain #14 tabs 09/02/20 (acetaminophen) albuterol sulfate 90 mcg/actuation 2 puff inhalation Q6H PRN 09/02/20 aerosol inhaler shortness of breath or wheezing #6.7 grams azithromycin 250 mg tablet See Rx Instructions PO .COMPLEX #6 09/02/20 (Zithromax) tabs albuterol sulfate 90 mcg/actuation 2 puff inhalation Q4-6H PRN 03/22/22 aerosol inhaler shortness of breath or wheezing #8.5 grams benzonatate 200 mg capsule 200 mg PO TID 5 days #15 caps 03/22/22 codeine 10 mg-guaifenesin 100 mg/5 10 ml PO Q4-6H PRN cough #120 mL 03/22/22 mL oral liquid ondansetron 4 mg disintegrating 4 mg PO Q6-8H PRN nausea and 12/11/22 tablet vomiting #7 tabs Allergies Allergy/AdvReac Type Severity Reaction Status Date / Time No Known Allergies Allergy Verified 09/02/20 16:21 Review of Systems Review of Systems: Yes all other systems are reviewed and are negative PMFSH Past Medical History Medical History No known health problems Surgical History History of appendectomy Social History Social History Alcohol intake: never Smoked in Last 30 Days: No Use of substances other than those prescribed or required for medical reasons: No Advance Directives: No Advance Directives Information Provided: Yes Physical Exam Vital Signs: Vital Signs: Last Vital Signs Temp 99 F 12/11/22 05:59 Pulse 99 12/11/22 05:59 Resp 16 12/11/22 05:59 BP 133/67 12/11/22 05:59 Pulse Ox 96 12/11/22 05:59 O2 Del Method 12/11/22 05:59 BMI result Body Mass Index 25.8 Appearance: Alert. Oriented X3. No acute distress. Looks pale Eyes: PERRLA, No Nystagmus ENT: Pharynx normal. Oral Mucosa moist Neck: Normal inspection. Neck supple. CVS: Normal heart rate and rhythm. Pulses normal. Respiratory: No respiratory distress. Equal air entry bilateral, no wheezing/rales/rhonchi Abdomen: Soft slight tenderness in epigastric area, McBurney signs negative Bowel sounds are present, no mass palpable, no CVA tenderness Skin: Skin warm and dry. Normal skin color. Normal skin turgor. Extremities: No lower extremity edema. No calf tenderness Neuro: Oriented X 3. No motor deficit. 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 fluids no significant abdominal pain showed patient home advised to follow with PCP or report to ER if abdominal pain Lab Data 12/11/22 01:40 12/11/22 01:40 Labs: Lab Results 12/11/22 12/11/22 Range/Units 01:40 01:40 WBC 11.6 H (4.8-10.8) X10*3/uL RBC 6.37 H (4.60-5.80) X10*6/uL Hgb 17.5 (14.0-18.0) g/dl Hct 50.4 (42.0-52.0) % MCV 79.1 L (80.0-98.0) fL MCH 27.5 (27.0-33.0) pg MCHC 34.7 (31.0-36.0) g/dl RDW 12.7 (11.0-16.0) % Plt Count 261 (160-400) X10*3/uL MPV 9.4 (9.4-12.4) fL Immature Gran % (Auto) 0.3 (0.0-0.4) % Neut % (Auto) 86.3 H (45-73) % Lymph % (Auto) 7.0 L (20-40) % [place] % (Auto) 6.0 (2-11) % Eos % (Auto) 0.2 (0-4) % Baso % (Auto) 0.2 (0-2) % Lymph # (Auto) 0.8 L (1.2-4.9) X10*3/uL [place] # (Auto) 0.7 (0.1-1.2) X10*3/uL Eos # (Auto) 0.0 (0.0-0.4) X10*3/uL Baso # (Auto) 0.0 (0.0-0.2) X10*3/uL Abs Immat Gran (auto) 0.04 H (0.00-0.03) X10*3/uL Absolute Neuts (auto) 10.0 H (2.0-8.3) x10*3/uL Absolute Nucleated RBC 0.000 (0.0-0.012) X10*3/uL Nucleated RBC % (auto) 0.0 (0.0-0.2) /100WBC Sodium 140 (135-145) mmol/L Potassium 4.1 (3.3-5.1) mmol/L Chloride 104 (96-108) mmol/L Carbon Dioxide 22 (22-29) mmol/L Anion Gap 18 (12-20) BUN 16 (9-16) mg/dL Creatinine 0.91 (0.5-1.4) mg/dL Estim Creat Clear Calc 130.3 Estimated GFR > 60 Random Glucose 107 (60-115) mg/dL Calcium 9.8 (8.4-10.2) mg/dL Total Bilirubin 1.3 H (0.0-1.0) mg/dL AST 18 (5-37) U/L ALT 15 (0-40) U/L Alkaline Phosphatase 74 (39-117) U/L Total Protein 7.8 (6.5-8.0) g/dL Albumin 4.8 (3.5-5.0) g/dL Lipase 14 (8-78) U/L Discharge Plan Discharge Clinical Impression: Food poisoning Patient Disposition: Home, Self-Care Instructions: Food Poisoning (ED) Additional Instructions: Drink plenty of fluid Meds for nausea as prescribed Report to the ER if abdominal pain/fever/vomiting continues Prescriptions: New ondansetron 4 mg tablet,disintegrating 4 mg PO Q6-8H PRN (Reason: nausea and vomiting) Qty: 7 0RF No Action azithromycin [Zithromax] 250 mg tablet See Rx Instructions PO .COMPLEX Qty: 6 0RF Rx Instructions: take 500 mg today (day 1), then 250 mg for 4 days (days 2-5) acetaminophen [Tylenol] 325 mg tablet 650 mg PO Q6H PRN (Reason: pain) Qty: 14 0RF albuterol sulfate 90 mcg/actuation HFA aerosol inhaler 2 puff inhalation Q6H PRN (Reason: shortness of breath or wheezing) Qty: 6.7 0RF albuterol sulfate 90 mcg/actuation HFA aerosol inhaler 2 puff inhalation Q4-6H PRN (Reason: shortness of breath or wheezing) Qty: 8.5 0RF codeine-guaifenesin 10-100 mg/5 mL liquid 10 ml PO Q4-6H PRN (Reason: cough) Qty: 120 0RF benzonatate 200 mg capsule 200 mg PO TID 5 Days Qty: 15 0RF Interventions: ED Discharge Assessment Last Done: 12/11/22 06:01 Discharge Date/Time: 12/11/22 06:02
[2022-12-11] MEDS: ondansetron HCL 4 MG/2 ML VIAL IVPUSH (01:43)
[2022-12-11] MEDS: 0.9 % Sodium Chloride 1,000 ML 999 ML IV (01:43)
[2022-12-11 01:44] LABS: MANUAL DIFF FLAG NO
[2022-12-11 01:45] LABS: Basophils Percent Auto 0.2 % (0-2); Eosinophils Percent Auto 0.2 % (0-4); Hematocrit 50.4 % (42.0-52.0); Hemoglobin 17.5 g/dl (14.0-18.0); Imm Gran Abs Auto 0.04 X10*3/uL (0.00-0.03); Imm Gran Pct Auto 0.3 % (0.0-0.4); Lymphocytes Absolute Auto 0.8 X10*3/uL (1.2-4.9); Mean Corpuscular HGB Conc 34.7 g/dl (31.0-36.0); Mean Corpuscular Hemoglobin 27.5 pg (27.0-33.0); Mean Corpuscular Volume 79.1 fL (80.0-98.0); Mean Platelet Volume 9.4 fL (9.4-12.4); Monocytes Absolute Auto 0.7 X10*3/uL (0.1-1.2); Neutrophils Percent Auto 86.3 % (45-73); Platelet Count 261 X10*3/uL (160-400); Red Blood Count 6.37 X10*6/uL (4.60-5.80); Red Cell Distribution Width 12.7 % (11.0-16.0); White Blood Count 11.6 X10*3/uL (4.8-10.8)
[2022-12-11 02:10] LABS: Alanine Aminotransferase 15 U/L (0-40); Albumin Level 4.8 g/dL (3.5-5.0); Alkaline Phosphatase 74 U/L (39-117); Anion Gap 18 (12-20); Aspartate Amino Transferase 18 U/L (5-37); Bilirubin Total 1.3 mg/dL (0.0-1.0); Blood Urea Nitrogen 16 mg/dL (9-16); Calcium 9.8 mg/dL (8.4-10.2); Carbon Dioxide 22 mmol/L (22-29); Chloride 104 mmol/L (96-108); Creatinine Clr Calc Pharmacy 130.3; Estimated Glomerular Filt Rate > 60; Glucose Random 107 mg/dL (60-115); Lipase 14 U/L (8-78); Potassium 4.1 mmol/L (3.3-5.1); Sodium 140 mmol/L (135-145); Total Protein 7.8 g/dL (6.5-8.0)
[2022-12-11 03:01] VITALS: BP 120/74; PULSE 116; RESP 20; TEMP 36.7; O2SAT 98
[2022-12-11 05:59] VITALS: BP 133/67; PULSE 99; RESP 16; TEMP 37.2; O2SAT 96
== END 2022-12-11 06:02 | disposition home or self-care (01) ==
PROVIDERS: Emergency Provider Internal Medicine
DX: A05.9 Bacterial foodborne intoxication, unspecified (principal); Z79.899 Other long term (current) drug therapy
CPT/HCPCS: 36415; 80053; 83690; 85025; 96361; 96374; 99284; J2405

== ENCOUNTER 2023-05-06 17:34 | Emergency (ER) | payer MEDICAID, SELFPAY ==
[2023-05-06 17:40] VITALS: BP 118/59; PULSE 78; RESP 18; TEMP 36.3; O2SAT 98; BMI 26.1
--- NOTE | 2023-05-06 17:42 | ED_ITS ---
HPI - General Adult General Chief complaint: Skin/Abscess/Foreign Body Stated complaint: itchy rash Time Seen by Provider: 05/06/23 17:42 Source: patient, RN notes reviewed and old records reviewed Mode of arrival: ambulatory Limitations: no limitations History of Present Illness HPI narrative: 23-year-old male presents for rash He has had a rash to both of his arms for the last 2 weeks. He states that the rash is very itchy He denies being out in the sun for any extended periods. Denies working outside Denies any soaps, lotions, detergents Related Data Previous Rx's Medication Instructions Recorded Tylenol 325 mg tablet 650 mg PO Q6H PRN pain #14 tabs 09/02/20 (acetaminophen) albuterol sulfate 90 mcg/actuation 2 puff inhalation Q6H PRN 09/02/20 aerosol inhaler shortness of breath or wheezing #6.7 grams azithromycin 250 mg tablet See Rx Instructions PO .COMPLEX #6 09/02/20 (Zithromax) tabs albuterol sulfate 90 mcg/actuation 2 puff inhalation Q4-6H PRN 03/22/22 aerosol inhaler shortness of breath or wheezing #8.5 grams benzonatate 200 mg capsule 200 mg PO TID 5 days #15 caps 03/22/22 codeine 10 mg-guaifenesin 100 mg/5 10 ml PO Q4-6H PRN cough #120 mL 03/22/22 mL oral liquid ondansetron 4 mg disintegrating 4 mg PO Q6-8H PRN nausea and 12/11/22 tablet vomiting #7 tabs hydrocortisone 2.5 % topical cream 1 appl topical BID 7 days #28 grams 05/06/23 hydroxyzine HCl 25 mg tablet 25 mg PO TID PRN itching #15 tabs 05/06/23 Allergies Allergy/AdvReac Type Severity Reaction Status Date / Time No Known Allergies Allergy Verified 09/02/20 16:21 Review of Systems Integumentary/Breasts: Skin/Breast: Reports pruritus and Reports rash PMFSH Past Medical History Medical History No known health problems Surgical History History of appendectomy Social History Social History Alcohol intake: never Physical Exam ED Const General: healthy appearing, comfortable, no acute distress, alert and awake Nutritional Appearance: well nourished Orientation/consciousness: patient oriented x3 HENMT Head: Yes normocephalic and Yes atraumatic Resp Effort & Inspection: normal respiratory effort, able to speak in complete sentences and not labored Skin Other: Patient is the as mildly erythematous rash in a circular pattern to both forearms. No scaling, no vesicles. General skin exam: elasticity normal Neuro General: patient oriented x3 Cranial nerves: Yes Bilaterally intact EOM present Cognition (Neuro): normal cognition Extrem Other: Moving all extremities well without any obvious deformities Medical Decision Making Medical Decision Making [facility] Narrative: Patient has a rash to both arms, unspecific origin. It does not appear consistent with cellulitis her allergic reaction. Will treat with hydrocortisone 2.5%. The rash also does not appear fungal Differential Diagnosis Acute rash Dermatitis Cellulitis Poison billy Sun poisoning Discharge Plan Discharge Clinical Impression: Rash and nonspecific skin eruption Patient Disposition: Home, Self-Care Instructions: Acute Rash (ED) Additional Instructions: Use hydrocortisone cream twice daily for the next 7 days You may use hydroxyzine as needed for itching and rash Follow-up with your primary doctor Prescriptions: New hydrocortisone 2.5 % cream 1 appl topical BID 7 Days Qty: 28 0RF hydroxyzine HCl 25 mg tablet 25 mg PO TID PRN (Reason: itching) Qty: 15 0RF No Action azithromycin [Zithromax] 250 mg tablet See Rx Instructions PO .COMPLEX Qty: 6 0RF Rx Instructions: take 500 mg today (day 1), then 250 mg for 4 days (days 2-5) acetaminophen [Tylenol] 325 mg tablet 650 mg PO Q6H PRN (Reason: pain) Qty: 14 0RF albuterol sulfate 90 mcg/actuation HFA aerosol inhaler 2 puff inhalation Q6H PRN (Reason: shortness of breath or wheezing) Qty: 6.7 0RF albuterol sulfate 90 mcg/actuation HFA aerosol inhaler 2 puff inhalation Q4-6H PRN (Reason: shortness of breath or wheezing) Qty: 8.5 0RF codeine-guaifenesin 10-100 mg/5 mL liquid 10 ml PO Q4-6H PRN (Reason: cough) Qty: 120 0RF benzonatate 200 mg capsule 200 mg PO TID 5 Days Qty: 15 0RF ondansetron 4 mg tablet,disintegrating 4 mg PO Q6-8H PRN (Reason: nausea and vomiting) Qty: 7 0RF
== END 2023-05-06 17:55 | disposition home or self-care (01) ==
LOC: HO.ED 17:48
PROVIDERS: Emergency Provider Emergency Medicine
DX: R21 Rash and other nonspecific skin eruption (principal); Z79.899 Other long term (current) drug therapy
CPT/HCPCS: 99282; 99283

== ENCOUNTER 2023-06-29 08:55 | Emergency (ER) | payer MEDICAID, SELFPAY ==
[2023-06-29 09:07] VITALS: BP 124/63; PULSE 72; RESP 16; TEMP 36.6; O2SAT 98; BMI 25.8
--- NOTE | 2023-06-29 09:21 | PC.NURSE ---
pt sitting in chair. denies pain at rest- reports pain to left big toe when walks. no bleeding/drainage at site- pink. no distress- talks well. calm, cooperative. aox4.
--- NOTE | 2023-06-29 10:18 | ED.SKABFB ---
HPI - Skin/Abscess/Foreign Bdy General Chief complaint: Skin/Abscess/Foreign Body Stated complaint: toe pain Time Seen by Provider: 06/29/23 09:13 Source: patient Mode of arrival: ambulatory Limitations: no limitations History of Present Illness HPI narrative: 23 year old male w/ no significant pmhx presents to the ED today w/ complaints of toe pain secondary to a suspected ingrown toenail. He states he trimmed his nails 4 days ago having ripped out a hang nail from the lateral aspect of the Right big toe. He states that two days ago he began having pain on the lateral aspect. He has been doing Epsom salt soaks with minimal relief. He denies any fever, chills, nausea, vomiting, warmth, or discharge. MD complaint: other (Ingrown toenail) Onset (ago): day(s) (4) Location: R foot (Big toe) Pain Consistency: constant Relieving factors: none Exacerbating factors: palpation Associated symptoms: denies other symptoms Treatments prior to arrival: OTC topical medication Related Data Previous Rx's Medication Instructions Recorded Tylenol 325 mg tablet 650 mg PO Q6H PRN pain #14 tabs 09/02/20 (acetaminophen) albuterol sulfate 90 mcg/actuation 2 puff inhalation Q6H PRN 09/02/20 aerosol inhaler shortness of breath or wheezing #6.7 grams azithromycin 250 mg tablet See Rx Instructions PO .COMPLEX #6 09/02/20 (Zithromax) tabs albuterol sulfate 90 mcg/actuation 2 puff inhalation Q4-6H PRN 03/22/22 aerosol inhaler shortness of breath or wheezing #8.5 grams benzonatate 200 mg capsule 200 mg PO TID 5 days #15 caps 03/22/22 codeine 10 mg-guaifenesin 100 mg/5 10 ml PO Q4-6H PRN cough #120 mL 03/22/22 mL oral liquid ondansetron 4 mg disintegrating 4 mg PO Q6-8H PRN nausea and 12/11/22 tablet vomiting #7 tabs hydrocortisone 2.5 % topical cream 1 appl topical BID 7 days #28 grams 05/06/23 hydroxyzine HCl 25 mg tablet 25 mg PO TID PRN itching #15 tabs 05/06/23 cephalexin 500 mg capsule 500 mg PO Q6H #16 caps 06/29/23 Allergies Allergy/AdvReac Type Severity Reaction Status Date / Time No Known Allergies Allergy Verified 06/29/23 09:07 Review of Systems Review of Systems: Yes all other systems are reviewed and are negative [facility] Past Medical History Surgical History History of appendectomy Social History Social History Alcohol intake: never Smoked in Last 30 Days: No Use of substances other than those prescribed or required for medical reasons: No Advance Directives: No Advance Directives Information Provided: Yes Physical Exam Vital Signs: Vital Signs: Last Vital Signs Temp 97.8 F 06/29/23 09:07 Pulse 72 06/29/23 09:07 Resp 16 06/29/23 09:07 BP 124/63 06/29/23 09:07 Pulse Ox 98 06/29/23 09:07 O2 Del Method Room Air 06/29/23 09:07 BMI result Body Mass Index 25.8 Appearance: Alert. Oriented X3. No acute distress. HEENT: normal inspection CVS: Pulses normal. Respiratory: No respiratory distress. Skin: Skin warm and dry. Normal skin color. Normal skin turgor. No rashes. Extremities: Right ingrown toenail of the lateral aspect of the big toe. Tender to palpation. No warmth, edema, or discharge noted. Otherwise normal of extremities. Normal capillary refill. No joint enlargement. Neuro: Oriented X 3. No motor deficit. No sensory deficit. Medications Administered Discontinued Medications Generic Name Dose Route Start Last Admin Trade Name Datq PRN Reason Stop Dose Admin Lidocaine HCl 30 ml 06/29/23 09:58 06/29/23 10:34 Lidocaine Hcl 1 % 20 Ml Vial INFILTRATI 06/29/23 09:59 30 ml ONCE ONE Administration Medical Decision Making Medical Decision Making MDM Narrative: 23 year old male w/ no significant pmhx presents to the ED today w/ complaints of toe pain secondary to a suspected ingrown toenail. On exam his VSS and NAD, no signs of trauma noted to the area. Likely an ingrown toenail secondary to nail trimming. Low index of suspicion for cellulitis, gout, or an acute fracture. Plan: Epsom salt soaks, antibiotic, Tylenol/NSAIDs for pain PRN Differential Diagnosis Differential Diagnoses: The differential diagnosis associated with the presentation includes Cellulitis, gout, or an acute fracture. Tests considered The following testing was considered but not selected: Considered an X-ray but given no trauma this was deferred Prescription Management I considered prescription management with: Pain Medication and Antibiotic Procedures Procedure Narrative Procedure Narrative: Ingrowen toenail of the right big toe everted and excised. Patient tolerated well. Nerve Block Nerve Block 1: Time out performed: Yes (1015) Local Anesthetic: lidocaine 1% Amount of anesthesia used (mL): 10 Side: right Nerve Blocks: digital (R big toe) Procedure Successful: Yes Patient Tolerated Procedure: well Complications: none Discharge Plan Discharge Clinical Impression: Ingrowing toenail of right foot Patient Disposition: Home, Self-Care Instructions: Ingrown Nail (ED) Additional Instructions: use warm soaks 3-4 times per day with soap and Epsom salts you can use over the counter bacitracin or antibiotic ointment to the area as well take the prescribed antibiotic as directed, complete the entire course If you develop new or worsening symptoms call 911 or come back to the ER for further evaluation. Prescriptions: New cephalexin 500 mg capsule 500 mg PO Q6H Qty: 16 0RF No Action azithromycin [Zithromax] 250 mg tablet See Rx Instructions PO .COMPLEX Qty: 6 0RF Rx Instructions: take 500 mg today (day 1), then 250 mg for 4 days (days 2-5) acetaminophen [Tylenol] 325 mg tablet 650 mg PO Q6H PRN (Reason: pain) Qty: 14 0RF albuterol sulfate 90 mcg/actuation HFA aerosol inhaler 2 puff inhalation Q6H PRN (Reason: shortness of breath or wheezing) Qty: 6.7 0RF albuterol sulfate 90 mcg/actuation HFA aerosol inhaler 2 puff inhalation Q4-6H PRN (Reason: shortness of breath or wheezing) Qty: 8.5 0RF codeine-guaifenesin 10-100 mg/5 mL liquid 10 ml PO Q4-6H PRN (Reason: cough) Qty: 120 0RF benzonatate 200 mg capsule 200 mg PO TID 5 Days Qty: 15 0RF ondansetron 4 mg tablet,disintegrating 4 mg PO Q6-8H PRN (Reason: nausea and vomiting) Qty: 7 0RF hydrocortisone 2.5 % cream 1 appl topical BID 7 Days Qty: 28 0RF hydroxyzine HCl 25 mg tablet 25 mg PO TID PRN (Reason: itching) Qty: 15 0RF Stand Alone Forms: Work/School Release Interventions: ED Discharge Assessment Last Done: 06/29/23 10:34 Discharge Date/Time: 06/29/23 10:34
[2023-06-29] MEDS: Lidocaine HCl 1 % 20 ML VIAL 30 ML INFILTRATI (10:34)
== END 2023-06-29 10:34 | disposition home or self-care (01) ==
PROVIDERS: Emergency Provider Emergency Medicine Emergency Medical Services
DX: L60.0 Ingrowing nail (principal); M79.674 Pain in right toe(s)
CPT/HCPCS: 96372; 99284

== ENCOUNTER 2024-01-10 19:27 | Emergency (ER) | payer MEDICAID, SELFPAY ==
--- NOTE | ~2024-01-10 | XR_ITS ---
EXAMINATION: XR CHEST CLINICAL INFORMATION: Cough COMPARISON: Previous chest x-ray August 2020 TECHNIQUE: Frontal view of the chest was obtained. FINDINGS: No significant abnormality is noted involving the heart, lungs, mediastinum, bony thorax or soft tissues. XR/XR chest 1V IMPRESSION: Unremarkable examination.
[2024-01-10 20:53] VITALS: BP 142/73; PULSE 107; RESP 18; TEMP 38.2; O2SAT 99; BMI 25.8
--- NOTE | 2024-01-10 21:17 | MHC.EDTECH ---
Patient brought into triage area,labs,and sars/flu/rsv obtained and sent to lab.
[2024-01-10 21:22] LABS: MANUAL DIFF FLAG NO
[2024-01-10 21:24] LABS: Basophils Percent Auto 0.3 % (0-2); Eosinophils Percent Auto 0.2 % (0-4); Imm Gran Abs Auto 0.01 X10*3/uL (0.00-0.03); Imm Gran Pct Auto 0.2 % (0.0-0.4); Lymphocytes Absolute Auto 1.6 X10*3/uL (1.2-4.9); Lymphocytes Percent Auto 26.6 % (20-40); Mean Corpuscular HGB Conc 34.1 g/dl (31.0-36.0); Mean Corpuscular Hemoglobin 27.8 pg (27.0-33.0); Mean Corpuscular Volume 81.6 fL (80.0-98.0); Mean Platelet Volume 9.4 fL (9.4-12.4); Monocytes Absolute Auto 0.8 X10*3/uL (0.1-1.2); Monocytes Percent Auto 13.9 % (2-11); Neutrophils Absolute Auto 3.5 x10*3/uL (2.0-8.3); Neutrophils Percent Auto 58.8 % (45-73); Platelet Count 225 X10*3/uL (160-400); Red Blood Count 5.39 X10*6/uL (4.60-5.80); Red Cell Distribution Width 13.2 % (11.0-16.0)
[2024-01-10 21:42] LABS: Alanine Aminotransferase 15 U/L (0-40); Albumin Level 4.5 g/dL (3.5-5.0); Alkaline Phosphatase 72 U/L (39-117); Anion Gap 16 (12-20); Aspartate Amino Transferase 17 U/L (5-37); Bilirubin Total 0.4 mg/dL (0.0-1.0); Blood Urea Nitrogen 14 mg/dL (9-16); Calcium 9.3 mg/dL (8.4-10.2); Carbon Dioxide 26 mmol/L (22-29); Chloride 105 mmol/L (96-108); Creatinine Clr Calc Pharmacy 126.6; Estimated Glomerular Filt Rate > 60; Glucose Random 114 mg/dL (60-115); Sodium 143 mmol/L (135-145); Total Protein 7.5 g/dL (6.5-8.0)
[2024-01-10 22:01] LABS: Influenza A PCR NEGATIVE (Negative); Influenza B PCR POSITIVE (Negative); Resp Syncy Virus RNA Qual PCR NEGATIVE (Negative); SARS COV2 PCR INHOUSE NEGATIVE (Negative)
[2024-01-10 23:05] VITALS: BP 129/78; PULSE 95; RESP 17; TEMP 38.6; O2SAT 98
[2024-01-10 23:11] VITALS: O2SAT 98
[2024-01-10 23:53] VITALS: BP 106/55; PULSE 97; RESP 16; TEMP 37.7; O2SAT 97
--- NOTE | 2024-01-10 23:56 | ED.GENADULT ---
HPI - General Adult General Chief complaint: Upper Respiratory Symptoms Stated complaint: cough and fever Time Seen by Provider: 01/10/24 23:45 Source: patient, RN notes reviewed and old records reviewed Mode of arrival: ambulatory Limitations: no limitations History of Present Illness HPI narrative: 23-year-old male presents for evaluation of 2 days of flu-like symptoms. He complains of sore throat, cough, body aches, subjective fevers but he does not have a thermometer at home He denies any chest pain, abdominal pain, nausea vomiting, diarrhea He reports sick contacts from 3 days ago who had similar symptoms No other complaints or concerns Related Data Previous Rx's Medication Instructions Recorded Tylenol 325 mg tablet 650 mg (2 x 325 mg) PO Q6H PRN 09/02/20 (acetaminophen) pain #14 tabs albuterol sulfate 90 mcg/actuation 2 puff inhalation Q6H PRN 09/02/20 aerosol inhaler shortness of breath or wheezing #6.7 grams azithromycin 250 mg tablet See Rx Instructions PO .COMPLEX #6 09/02/20 (Zithromax) tabs albuterol sulfate 90 mcg/actuation 2 puff inhalation Q4-6H PRN 03/22/22 aerosol inhaler shortness of breath or wheezing #8.5 grams benzonatate 200 mg capsule 200 mg PO TID 5 days #15 caps 03/22/22 codeine 10 mg-guaifenesin 100 mg/5 10 ml PO Q4-6H PRN cough #120 mL 03/22/22 mL oral liquid ondansetron 4 mg disintegrating 4 mg PO Q6-8H PRN nausea and 12/11/22 tablet vomiting #7 tabs hydrocortisone 2.5 % topical cream 1 appl topical BID 7 days #28 grams 05/06/23 hydroxyzine HCl 25 mg tablet 25 mg PO TID PRN itching #15 tabs 05/06/23 cephalexin 500 mg capsule 500 mg PO Q6H #16 caps 06/29/23 Allergies Allergy/AdvReac Type Severity Reaction Status Date / Time No Known Allergies Allergy Verified 01/10/24 20:53 Review of Systems Constitutional: Constitutional: Reports body ache(s), Reports chills, Reports fever(s), Reports headache(s), Reports malaise and Reports weakness Eyes: Eyes: Denies blurry vision ENT: Reports headache(s) and Reports sore throat Cardiovascular: Cardiovascular: Denies chest pain and Denies dyspnea Respiratory: Respiratory: Reports cough and Denies dyspnea Gastrointestinal: Gastrointestinal: Denies abdominal pain, Denies nausea and Denies vomiting Neurologic: Reports headache(s) and Reports weakness PMFSH Past Medical History Surgical History History of appendectomy Social History Social History Alcohol intake: never Smoked in Last 30 Days: No Advance Directives: No Advance Directives Information Provided: No Physical Exam ED Vital Signs: Vital Signs - 24 hr 01/10/24 20:53 01/10/24 23:05 01/10/24 23:11 Temperature 100.7 F H 101.4 F H Pulse Rate 107 H 95 Respiratory Rate 18 17 Blood Pressure 142/73 H 129/78 Pulse Oximetry 99 98 98 Oxygen Delivery Method Room Air Room Air Room Air 01/10/24 23:53 Temperature 99.9 F Pulse Rate 97 Respiratory Rate 16 Blood Pressure 106/55 L Pulse Oximetry 97 Oxygen Delivery Method Room Air BMI result Body Mass Index 25.8 Const Other: No obvious signs of trauma General: healthy appearing, comfortable, no acute distress, alert and awake Nutritional Appearance: well nourished Orientation/consciousness: patient oriented x3 HENMT Other: Retropharynx is mildly erythematous, no exudates or evidence of abscess Head: Yes normocephalic and Yes atraumatic Eyes Eyelids: Yes eyelids normal Conjunctivae: conjunctivae normal Sclerae: sclerae normal Corneas: corneas normal Pupils: Equal, round and reactive pupils present EOM: EOMs intact bilaterally Neck Neck: Yes full ROM Resp Effort & Inspection: normal respiratory effort, able to speak in complete sentences, no audible wheezes and not labored Auscultation: clear to auscultation bilaterally GI Inspection: No distended Palpation (GI): Soft to palpation, not firm, nontender, no guarding and not rigid Skin General skin exam: elasticity normal Neuro General: patient oriented x3 Cranial nerves: Yes Equal, round and reactive pupils present and Yes Bilaterally intact EOM present Cognition (Neuro): normal cognition Extrem Other: Moving all extremities well without any obvious deformities Medical Decision Making Medical Decision Making MDM Narrative: 23-year-old male presents for evaluation of flu-like symptoms, he had a workup that included labs, serology and chest x-ray. His labs and chest x-ray are reassuring. He did test positive for influenza A. His throat does not appear consistent with strep throat. Given that he is within 2 days, we will treat with Tamiflu. Patient's vitals are stable and he is stable for discharge Differential Diagnosis Differential Diagnoses: The differential diagnosis associated with the presentation includes Influenza Viral syndrome Pneumonia Bronchitis Fever Sepsis Lab Data MDM Lab Attestation statement: I reviewed the patient's lab results. No leukocytosis or anemia. No electrolyte abnormalities. Patient tested positive for influenza B 01/10/24 21:17 01/10/24 21:17 Labs: Lab Results 01/10/24 Range/Units 21:17 WBC 6.0 (4.8-10.8) X10*3/uL RBC 5.39 (4.60-5.80) X10*6/uL Hgb 15.0 (14.0-18.0) g/dl Hct 44.0 (42.0-52.0) % MCV 81.6 (80.0-98.0) fL MCH 27.8 (27.0-33.0) pg MCHC 34.1 (31.0-36.0) g/dl RDW 13.2 (11.0-16.0) % Plt Count 225 (160-400) X10*3/uL MPV 9.4 (9.4-12.4) fL Immature Gran % (Auto) 0.2 (0.0-0.4) % Neut % (Auto) 58.8 (45-73) % Lymph % (Auto) 26.6 (20-40) % [place] % (Auto) 13.9 H (2-11) % Eos % (Auto) 0.2 (0-4) % Baso % (Auto) 0.3 (0-2) % Lymph # (Auto) 1.6 (1.2-4.9) X10*3/uL [place] # (Auto) 0.8 (0.1-1.2) X10*3/uL Eos # (Auto) 0.0 (0.0-0.4) X10*3/uL Baso # (Auto) 0.0 (0.0-0.2) X10*3/uL Abs Immat Gran (auto) 0.01 (0.00-0.03) X10*3/uL Absolute Neuts (auto) 3.5 (2.0-8.3) x10*3/uL Absolute Nucleated RBC 0.000 (0.0-0.012) X10*3/uL Nucleated RBC % (auto) 0.0 (0.0-0.2) /100WBC Sodium 143 (135-145) mmol/L Potassium 4.0 (3.3-5.1) mmol/L Chloride 105 (96-108) mmol/L Carbon Dioxide 26 (22-29) mmol/L Anion Gap 16 (12-20) BUN 14 (9-16) mg/dL Creatinine 0.87 (0.5-1.4) mg/dL Estim Creat Clear Calc 126.6 Estimated GFR > 60 Random Glucose 114 (60-115) mg/dL Calcium 9.3 (8.4-10.2) mg/dL Total Bilirubin 0.4 (0.0-1.0) mg/dL AST 17 (5-37) U/L ALT 15 (0-40) U/L Alkaline Phosphatase 72 (39-117) U/L Total Protein 7.5 (6.5-8.0) g/dL Albumin 4.5 (3.5-5.0) g/dL Influenza Type A (PCR) NEGATIVE (Negative) Influenza Type B (PCR) POSITIVE A (Negative) RSV RNA Qual (PCR) NEGATIVE (Negative) SARS-CoV-2 RNA (RT-PCR) NEGATIVE (Negative) Independent Interpretation I performed an independent interpretation of an: Plain X-Ray (No focal infiltrates or pneumothorax) Radiology Impression Discussion of test interpretation with radiology: I have reviewed the radiologist's reading. Radiologist Impression: Unremarkable examination the chest Discharge Plan Discharge Clinical Impression: Influenza Patient Disposition: Home, Self-Care Instructions: Influenza (ED) Additional Instructions: You tested positive for the flu Take ibuprofen/Tylenol as needed for fevers, body aches Drink lots of fluids You may take Tamiflu twice daily for the next 5 days Follow-up with your primary doctor Return for new or worsening symptoms Your blood work and chest x-ray were reassuring Prescriptions: No Action azithromycin [Zithromax] 250 mg tablet See Rx Instructions PO .COMPLEX Qty: 6 0RF Rx Instructions: take 500 mg today (day 1), then 250 mg for 4 days (days 2-5) acetaminophen [Tylenol] 325 mg tablet 650 mg PO Q6H PRN (Reason: pain) Qty: 14 0RF albuterol sulfate 90 mcg/actuation HFA aerosol inhaler 2 puff inhalation Q6H PRN (Reason: shortness of breath or wheezing) Qty: 6.7 0RF albuterol sulfate 90 mcg/actuation HFA aerosol inhaler 2 puff inhalation Q4-6H PRN (Reason: shortness of breath or wheezing) Qty: 8.5 0RF codeine-guaifenesin 10-100 mg/5 mL liquid 10 ml PO Q4-6H PRN (Reason: cough) Qty: 120 0RF benzonatate 200 mg capsule 200 mg PO TID 5 Days Qty: 15 0RF ondansetron 4 mg tablet,disintegrating 4 mg PO Q6-8H PRN (Reason: nausea and vomiting) Qty: 7 0RF hydrocortisone 2.5 % cream 1 appl topical BID 7 Days Qty: 28 0RF hydroxyzine HCl 25 mg tablet 25 mg PO TID PRN (Reason: itching) Qty: 15 0RF cephalexin 500 mg capsule 500 mg PO Q6H Qty: 16 0RF Stand Alone Forms: Work/School Release
[2024-01-11] MEDS: Melatonin 3 MG TABLET 6 MG PO (00:08)
[2024-01-11] MEDS: Oseltamivir Phosphate 75 MG CAPSULE PO (00:08)
[2024-01-11] MEDS: Ibuprofen 600 MG TABLET PO (00:08)
== END 2024-01-11 00:11 | disposition home or self-care (01) ==
PROVIDERS: Emergency Provider Internal Medicine
DX: J10.1 Influenza due to other identified influenza virus with other respiratory manifestations (principal); R05.9 Cough, unspecified; R50.9 Fever, unspecified; Z11.52 Encounter for screening for COVID-19; Z20.828 Contact with and (suspected) exposure to other viral communicable diseases
CPT/HCPCS: 0241U; 71045; 80053; 85025; 99283; 99284